=== PATIENT | male | born 1995 | race Caucasian/White ===

== ENCOUNTER 2023-01-31 08:30 | Emergency (ER) | payer BC, OTHER, SELFPAY ==
--- NOTE | ~2023-01-31 | XR_ITS ---
EXAMINATION: XR CHEST CLINICAL INFORMATION: Chest pain COMPARISON: 06/24/2012 (report only) TECHNIQUE: 2 views of the chest were obtained. FINDINGS: Again noted are hypoinflated lungs. Otherwise, no significant abnormality is noted involving the heart, lungs, mediastinum, bony thorax or soft tissues. XR/XR chest 2V IMPRESSION: Hypoinflated lungs. No acute intrathoracic disease.
--- NOTE | 2023-01-31 08:37 | ECG_ITS ---
Test Reason : cp Blood Pressure : / mmHG Vent. Rate : 083 BPM Atrial Rate : 083 BPM P-R Int : 152 ms QRS Dur : 088 ms QT Int : 384 ms P-R-T Axes : 033 028 045 degrees QTc Int : 451 ms Normal sinus rhythm Cannot rule out Anterior infarct , age undetermined Abnormal ECG No previous ECGs available Referred By: Zahira Rosa Electronically Signed By:COLLIN SOLARES
--- NOTE | 2023-01-31 08:37 | ED_ITS ---
HPI - General Adult General Chief complaint: Chest Pain Stated complaint: WOKE UP W/CRUSHING CP PER EMS Time Seen by Provider: 01/31/23 08:36 Source: patient and EMS Mode of arrival: EMS Limitations: no limitations History of Present Illness HPI narrative: This is a 27yo male with a PMH of antiphospholipid syndrome and heartburn on omeprazole who presents with waxing and waning chest pain that started at 4:30am. Pain is described as substernal tight/cramping and occasionally radiates to the right axilla. Patient reports he has felt off since yesterday after he had a CT w contrast of the LEs due to chronic LE pain and suspicion for blood clots. Has not taken any OTC medications for the pain. Denies SOB, fever/chills, N/V. Onset (ago): hour(s) Location: chest Severity: mild Relieving factors: none Exacerbating factors: none Associated symptoms: chest pain Treatments prior to arrival: none Related Data Allergies Allergy/AdvReac Type Severity Reaction Status Date / Time azithromycin [From ZITHROMAX] Allergy Intermediate HIVES Unverified 01/15/20 16:46 montelukast [From SINGULAIR] Allergy Intermediate HIVES Unverified 01/15/20 16:46 amoxicillin [AMOXICILLIN] Allergy Unknown HIVES Unverified 01/15/20 16:46 ENVIRONMENTAL Allergy Unknown DIFFICULTY Uncoded 01/15/20 16:46 BREATHING Penicillin Allergy Unknown Uncoded 12/29/16 00:00 Review of Systems 2 Constitutional: Constitutional: Reports no additional constitutional complaints, Denies chills, Denies fever(s) and Denies night sweats Eyes: Eyes: Reports no additional eye complaints, Denies blurry vision, Denies change in vision, Denies diplopia, Denies eye discharge, Denies loss of vision and Denies eye pain ENT: Denies dizziness Cardiovascular: Cardiovascular: Reports chest pain, Denies lightheadedness, Denies Loss of Consciousness and Denies dyspnea Comments: +waxing and waning substernal cramping c hest pain, radiates to right axilla Respiratory: Respiratory: Reports no additional respiratory complaints and Denies dyspnea Gastrointestinal: Gastrointestinal: Reports no additional gastrointestinal complaints, Denies abdominal pain, Denies melena, Denies hematochezia, Denies change in bowel habits and Denies change in stool character Genitourinary: Genitourinary: Reports no additional male genitourinary complaints, Denies hematuria, Denies oliguria, Denies difficulty urinating, Denies dysuria, Denies urinary frequency, Denies urinary hesitancy, Denies urinary incontinence and Denies urinary urgency Musculoskeletal: Musculoskeletal: Reports no additional musculoskeletal complaints, Denies numbness and Denies tingling Neurologic: Denies dizziness, Denies loss of vision, Denies numbness and Denies tingling Psychiatric: Psychiatric: Reports no additional psychiatric complaints Endocrine: Endocrine: Reports no additional endocrine complaints Hematologic/Lymphatic: Hematologic/Lymphatic: Reports no additional hematologic/lymphatic complaints Allergic/Immunologic: Allergic/Immunologic: Reports no additional allergic/immunologic complaints [facility], [facility] Past Medical History Attestation statement: The following information was validated with the patient. Source: old records reviewed and nursing notes reviewed Social History Social History Smoked in Last 30 Days: No Use of substances other than those prescribed or required for medical reasons: No Advance Directives: No Advance Directives Information Provided: No Physical Exam ED Vital Signs: Vital Signs - 24 hr 01/31/23 08:38 01/31/23 10:25 Temperature 98.2 F 98.4 F Pulse Rate 81 76 Respiratory Rate 20 20 Blood Pressure 133/87 135/87 Pulse Oximetry 96 Oxygen Delivery Method Room Air Room Air Oxygen Flow Rate 98 BMI result Body Mass Index 38.8 Const General: cooperative, no acute distress, alert and awake Nutritional Appearance: well nourished Orientation/consciousness: patient oriented x3 Limitations: no limitations [facility] Head: Yes normal to inspection and Yes atraumatic Ears: hearing grossly normal bilaterally and external ears normal General nose exam: Normal external nose present, no nasal discharge noted and no epistaxis Face and sinus: Yes normal facial exam, No abrasion and No laceration Mouth: Normal oral and palatal mucosa present, no drooling and no muffled voice Eyes General: appearance normal, both eyes and all related structures Periorbital: periorbital findings normal Eyelids: Yes eyelids normal Conjunctivae: conjunctivae normal Pupils: Equal, round and reactive pupils present EOM: EOMs intact bilaterally Neck Neck: Yes normal visual inspection, Yes full ROM and Yes no lymphadenopathy Chest Chest palpation & inspection: normal inspection of the chest Resp Effort & Inspection: normal respiratory effort and able to speak in complete sentences Auscultation: clear to auscultation bilaterally Cardio Rate: regular rate Rhythm: regular rhythm GI Inspection: Yes normal to inspection Palpation (GI): Soft to palpation, not firm and nontender Neuro General: patient oriented x3 and moves all extremities Cranial nerves: Yes Equal, round and reactive pupils present Cognition (Neuro): normal cognition Motor exam (neuro): 5/5 motor strength present throughout Sensory Exam: Normal double simultaneous stimulation for sensation Coordination: [id number] test normal Extrem General: Yes normal to inspection, Yes full ROM and Yes capillary refill normal Psych Appearance: grossly normal Mental Status: mental status grossly normal Affect: normal affect Attitude: cooperative Thought process: Normal thought process present Thought content: Normal thought content present Insight: Good insight present (Psych) Medications Administered Discontinued Medications Generic Name Dose Route Start Last Admin Trade Name Freq PRN Reason Stop Dose Admin Al Hydroxide/Mg Hydroxide 15 ml 01/31/23 08:47 01/31/23 09:14 Magnesium Hydrox/Alum Hydrox 30 Ml Oral.Susp PO 01/31/23 08:48 15 ml ONCE ONE Administration Omeprazole 20 mg 01/31/23 08:47 01/31/23 09:14 Omeprazole 20 Mg Capsule.Dr PO 01/31/23 08:48 20 mg ONCE ONE Administration Medical Decision Making Medical Decision Making [facility] Narrative: Patient is a 27 year old assigned male at with a history of APS presenting to the emergency department today with intermittent, now resolved, chest pain. Patient's physical exam was unremarkable. Patient's blood work was unremarkable. Patient's EKG was unremarkable. Patient's chest x-ray showed no acute process. I explained my physical exam findings as well as all test results to the patient. I answered all questions asked by the patient. I stressed the importance of the patient taking his medication as prescribed. I stressed the importance of the patient following up with his primary care provider. I stressed the importance of the patient returning to the emergency department immediately if his symptoms were to worsen or if he were to develop any dizziness, shortness of breath, difficulty breathing, chest pain, blurry vision, loss of vision, nausea, vomiting, abdominal pain, fever, chills, back pain, or any other complaints. Patient verbalized agreement and understanding with this treatment plan and discharge. Differential Diagnosis Differential Diagnoses: The differential diagnosis associated with the presentation includes Atypical chest pain Chest pain NSTEMI STEMI Admission/Observation Consideration of admission/observation: Escalation of care including admission/observation considered Patient would have been admitted to the hospital had his work up had any findings where hospital admission was appropriate and his clinical presentation warranted hospital admission. Lab Data MDM Lab Attestation statement: I reviewed the patient's lab results. My interpretation of these studies and their corresponding values is that they are grossly normal. 01/31/23 09:22 01/31/23 09:22 Labs: Lab Results 01/31/23 Range/Units 09:22 WBC 9.8 (4.8-10.8) X10*3/uL RBC 5.12 (4.60-5.80) X10*6/uL Hgb 15.5 (14.0-18.0) g/dl Hct 44.6 (42.0-52.0) % MCV 87.1 (80.0-98.0) fL MCH 30.3 (27.0-33.0) pg MCHC 34.8 (31.0-36.0) g/dl RDW 12.6 (11.0-16.0) % Plt Count 310 (160-400) X10*3/uL MPV 10.2 (9.4-12.4) fL Immature Gran % (Auto) 0.2 (0.0-0.4) % Neut % (Auto) 59.1 (45-73) % Lymph % (Auto) 25.1 (20-40) % [place] % (Auto) 9.9 (2-11) % Eos % (Auto) 5.2 H (0-4) % Baso % (Auto) 0.5 (0-2) % Lymph # (Auto) 2.5 (1.2-4.9) X10*3/uL [place] # (Auto) 1.0 (0.1-1.2) X10*3/uL Eos # (Auto) 0.5 H (0.0-0.4) X10*3/uL Baso # (Auto) 0.1 (0.0-0.2) X10*3/uL Abs Immat Gran (auto) 0.02 (0.00-0.03) X10*3/uL Absolute Neuts (auto) 5.8 (2.0-8.3) x10*3/uL Absolute Nucleated RBC 0.000 (0.0-0.012) X10*3/uL Nucleated RBC % (auto) 0.0 (0.0-0.2) /100WBC PT 11.5 (11.1-13.3) SEC INR 0.9 (0.9-1.1) APTT 36.4 (26.0-36.4) SEC Sodium 139 (135-145) mmol/L Potassium 4.3 (3.3-5.1) mmol/L Chloride 107 (96-108) mmol/L Carbon Dioxide 24 (22-29) mmol/L Anion Gap 12 (12-20) BUN 11 (9-16) mg/dL Creatinine 0.67 (0.5-1.4) mg/dL Estim Creat Clear Calc 221.4 Estimated GFR > 60 Random Glucose 107 (60-115) mg/dL Calcium 9.1 (8.4-10.2) mg/dL Magnesium 2.3 (1.6-2.6) mg/dL Total Bilirubin 0.6 (0.0-1.0) mg/dL AST 45 H (5-37) U/L ALT 61 H (0-40) U/L Alkaline Phosphatase 61 (39-117) U/L Troponin I High Sens < 2.7 (<3.5-35.0) ng/L Total Protein 7.6 (6.5-8.0) g/dL Albumin 4.2 (3.5-5.0) g/dL Influenza Type A (PCR) NEGATIVE (Negative) Influenza Type B (PCR) NEGATIVE (Negative) RSV RNA Qual (PCR) NEGATIVE (Negative) SARS-CoV-2 RNA (RT-PCR) NEGATIVE (Negative) Independent Interpretation I performed an independent interpretation of an: EKG and Plain X-Ray Interpretation: My interpretation is in agreement with the radiologist's impression of this imaging study. - EXAMINATION: XR CHEST CLINICAL INFORMATION: Chest pain COMPARISON: 06/24/2012 (report only) TECHNIQUE: 2 views of the chest were obtained. FINDINGS: Again noted are hypoinflated lungs. Otherwise, no significant abnormality is noted involving the heart, lungs, mediastinum, bony thorax or soft tissues. XR/XR chest 2V IMPRESSION: Hypoinflated lungs. No acute intrathoracic disease. Dictated By: Mesfin Whaley MD Signed By: Electronically signed by Mesfin Whaley MD 01/31/23 0913 - Vent. Rate: 083 BPM Atrial Rate: 083 BPM P-R Int: 152 ms QRS Dur: 088 ms QT Int: 384 ms P-R-T Axes: 033 028 045 degrees QTc Int: 451 ms Normal sinus rhythm Cannot rule out Anterior infarct , age undetermined Abnormal ECG No previous ECGs available DD/ 0840 Radiology Impression Discussion of test interpretation with radiology: I have reviewed the radiologist's reading. Discharge Plan Discharge Clinical Impression: Atypical chest pain Patient Disposition: Home, Self-Care Instructions: Chest Pain (ED) Additional Instructions: Follow up with your primary care provider. Return to the emergency department immediately if your symptoms worsen or if you develop any dizziness, shortness of breath, difficulty breathing, chest pain, blurry vision, loss of vision, nausea, vomiting, abdominal pain, fever, chills, back pain, or any other complaints. Referrals: Jazmyn Hull MD [Primary Care Provider] - Stand Alone Forms: Work/School Release Interventions: ED Discharge Assessment Last Done: 01/31/23 10:28 Discharge Date/Time: 01/31/23 10:29 Print Language: Bengali
[2023-01-31 08:38] VITALS: BP 133/87; BP 180/60; PULSE 81; RESP 20; TEMP 36.8; O2SAT 96; BMI 38.8
[2023-01-31] MEDS: Magnesium Hydrox/Alum Hydrox 30 ML ORAL.SUSP 15 ML PO (09:14)
[2023-01-31] MEDS: Omeprazole 20 MG CAPSULE.DR PO (09:14)
[2023-01-31 09:28] LABS: MANUAL DIFF FLAG NO
--- NOTE | 2023-01-31 09:29 | PC.NURSE ---
alert and oriented, respirations even and unlabored. pt refused IV d/t having one yesterday and not desiring one today. able to straight stick pt to obtain lab work with reluctance from pt. sinus rhythm on monitor, swab obtained and sent. call palma within reach
[2023-01-31 09:30] LABS: Basophils Absolute Auto 0.1 X10*3/uL (0.0-0.2); Basophils Percent Auto 0.5 % (0-2); Eosinophils Absolute Auto 0.5 X10*3/uL (0.0-0.4); Eosinophils Percent Auto 5.2 % (0-4); Hematocrit 44.6 % (42.0-52.0); Hemoglobin 15.5 g/dl (14.0-18.0); Imm Gran Abs Auto 0.02 X10*3/uL (0.00-0.03); Imm Gran Pct Auto 0.2 % (0.0-0.4); Lymphocytes Absolute Auto 2.5 X10*3/uL (1.2-4.9); Lymphocytes Percent Auto 25.1 % (20-40); Mean Corpuscular HGB Conc 34.8 g/dl (31.0-36.0); Mean Corpuscular Hemoglobin 30.3 pg (27.0-33.0); Mean Corpuscular Volume 87.1 fL (80.0-98.0); Mean Platelet Volume 10.2 fL (9.4-12.4); Monocytes Percent Auto 9.9 % (2-11); Neutrophils Absolute Auto 5.8 x10*3/uL (2.0-8.3); Neutrophils Percent Auto 59.1 % (45-73); Platelet Count 310 X10*3/uL (160-400); Red Blood Count 5.12 X10*6/uL (4.60-5.80); Red Cell Distribution Width 12.6 % (11.0-16.0); White Blood Count 9.8 X10*3/uL (4.8-10.8)
[2023-01-31 09:35] LABS: INTERNATIONAL NORM RATIO 0.9 (0.9-1.1); Prothrombin Time 11.5 SEC (11.1-13.3)
[2023-01-31 09:37] LABS: Partial Thromboplastin Time 36.4 SEC (26.0-36.4)
[2023-01-31 09:46] LABS: Alanine Aminotransferase 61 U/L (0-40); Albumin Level 4.2 g/dL (3.5-5.0); Alkaline Phosphatase 61 U/L (39-117); Anion Gap 12 (12-20); Aspartate Amino Transferase 45 U/L (5-37); Bilirubin Total 0.6 mg/dL (0.0-1.0); Blood Urea Nitrogen 11 mg/dL (9-16); Calcium 9.1 mg/dL (8.4-10.2); Carbon Dioxide 24 mmol/L (22-29); Chloride 107 mmol/L (96-108); Creatinine Clr Calc Pharmacy 221.4; Estimated Glomerular Filt Rate > 60; Glucose Random 107 mg/dL (60-115); Magnesium 2.3 mg/dL (1.6-2.6); Potassium 4.3 mmol/L (3.3-5.1); Sodium 139 mmol/L (135-145); Total Protein 7.6 g/dL (6.5-8.0)
[2023-01-31 09:55] LABS: Troponin-I High Sensitivity < 2.7 ng/L (<3.5-35.0)
[2023-01-31 10:11] LABS: Influenza A PCR NEGATIVE (Negative); Influenza B PCR NEGATIVE (Negative); Resp Syncy Virus RNA Qual PCR NEGATIVE (Negative); SARS COV2 PCR INHOUSE NEGATIVE (Negative)
[2023-01-31 10:25] VITALS: BP 135/87; PULSE 76; RESP 20; TEMP 36.9
== END 2023-01-31 10:29 | disposition home or self-care (01) ==
PROVIDERS: Physician Assistant Medical; Emergency Provider Emergency Medicine; PCP Pediatrics
DX: R07.89 Other chest pain (principal); R25.2 Cramp and spasm; Z20.822 Contact with and (suspected) exposure to COVID-19; Z20.828 Contact with and (suspected) exposure to other viral communicable diseases; Z79.899 Other long term (current) drug therapy
CPT/HCPCS: 0241U; 71046; 80053; 83735; 84484; 85025; 85610; 85730; 93005; 99283; 99285

== ENCOUNTER 2025-01-28 12:58 | Emergency (ER) | payer BC, SELFPAY ==
--- NOTE | ~2025-01-28 | CT_ITS ---
CLINICAL HISTORY: left upper abdominal pain CT abdomen and pelvis without contrast Comparison: None provided Findings: Lung bases clear. No acute bony abnormalities. Hepatomegaly with fatty infiltration of the liver. No focal abnormality in liver or spleen. Pancreas and adrenal glands unremarkable. Gallbladder partially contracted, grossly unremarkable. Punctate nonobstructing left renal stones. No right renal or bilateral ureteral stone. No hydronephrosis identified. No evidence for aortic aneurysm. No free fluid or adenopathy in the pelvis. No diverticulitis. Appendix unremarkable. Impression: No acute processes This document has been electronically signed by: Lorenzo Alexis MD on 01/28/2025 21:29:57
[2025-01-28 13:29] VITALS: BP 133/84; PULSE 84; RESP 18; TEMP 36.3; O2SAT 97; BMI 43.2
[2025-01-28 15:45] LABS: MANUAL DIFF FLAG NO
[2025-01-28 15:48] LABS: Hematocrit 45.1 % (42.0-52.0); Hemoglobin 15.8 g/dl (14.0-18.0); Imm Gran Abs Auto 0.04 X10*3/uL (0.00-0.03); Imm Gran Pct Auto 0.4 % (0.0-0.4); Lymphocytes Absolute Auto 3.4 X10*3/uL (1.2-4.9); Mean Corpuscular HGB Conc 35.0 g/dl (31.0-36.0); Mean Corpuscular Hemoglobin 29.8 pg (27.0-33.0); Mean Corpuscular Volume 84.9 fL (80.0-98.0); NRBC Abs Auto 0.000 X10*3/uL (0.0-0.012); NRBC Pct Auto 0.0 /100WBC (0.0-0.2); Platelet Count 329 X10*3/uL (160-400); Red Blood Count 5.31 X10*6/uL (4.60-5.80); White Blood Count 11.3 X10*3/uL (4.8-10.8)
[2025-01-28 16:00] LABS: Alanine Aminotransferase 49 U/L (0-40); Albumin Level 4.5 g/dL (3.5-5.0); Alkaline Phosphatase 82 U/L (39-117); Anion Gap 11 (12-20); Aspartate Amino Transferase 51 U/L (5-37); Blood Urea Nitrogen 10 mg/dL (9-16); Calcium 9.2 mg/dL (8.4-10.2); Carbon Dioxide 30 mmol/L (22-29); Chloride 104 mmol/L (96-108); Creatinine Clr Calc Pharmacy 223.6; Estimated Glomerular Filt Rate > 60; Lipase 29 U/L (8-78); Magnesium 2.3 mg/dL (1.6-2.6); Potassium 4.1 mmol/L (3.3-5.1); Sodium 141 mmol/L (135-145); Total Protein 8.0 g/dL (6.5-8.0)
--- NOTE | 2025-01-28 18:06 | ED.ABDPAIN ---
HPI - Abdominal Pain General Chief Complaint: Abdominal Pain Stated Complaint: rib pain Time Seen by Provider: 01/28/25 18:28 Source: patient, RN notes reviewed and old records reviewed Mode of arrival: ambulatory Limitations: no limitations History of Present Illness ED Provider: Luciano LIAO narrative: 29-year-old male past medical history significant for obesity, GERD, asthma, antiphospholipid syndrome presents for evaluation of abdominal pain. Patient reports left upper abdominal pain under his left rib for about 1 week. He went to urgent care yesterday and was told they thought his abdomen to be distended. When they were palpating his abdomen the patient has started to have more generalized abdominal pain in the left upper abdomen, epigastric and right upper abdomen He reports some nausea with no vomiting. He denies any diarrhea pain He reports he has a proximally 1 bowel movement per day in his last bowel was this morning, no blood noted The patient denies any history abdominal surgeries Related Data Allergies Allergy/AdvReac Type Severity Reaction Status Date / Time azithromycin (From ZITHROMAX) Allergy Intermediate HIVES Verified 01/28/25 13:30 montelukast (From SINGULAIR) Allergy Intermediate HIVES Verified 01/28/25 13:30 amoxicillin (AMOXICILLIN) Allergy Unknown HIVES Verified 01/28/25 13:30 ENVIRONMENTAL Allergy Unknown DIFFICULTY Uncoded 01/15/20 16:46 BREATHING Penicillin Allergy Unknown Unknown Uncoded 01/28/25 13:30 Review of Systems Constitutional: Denies body ache(s), Denies chills, Denies fever(s) and Denies headache(s) Eyes: Denies blurry vision Denies vertigo, Denies dizziness and Denies headache(s) Cardiovascular: Denies chest pain and Denies dyspnea on exertion Respiratory: Denies cough and Denies dyspnea on exertion Gastrointestinal: Reports abdominal pain, Denies melena, Denies hematochezia, Denies constipation, Denies diarrhea, Denies loose stools, Reports nausea and Denies vomiting Musculoskeletal: Denies back pain Skin/Breast: Denies rash Denies vertigo, Denies dizziness and Denies headache(s) Psychiatric: Denies anxiety PMFSH Social History Social History Advance Directives: No Advance Directives Information Provided: Yes Do you have a plan to hurt others: No Plan Physical Exam ED Vital Signs: Vital Signs - 24 hr 01/28/25 13:29 01/28/25 18:48 Temperature 97.4 F 98.3 F Pulse Rate 84 64 Respiratory Rate 18 14 Blood Pressure 133/84 133/86 Pulse Oximetry 97 99 Oxygen Delivery Method Room Air Room Air BMI result Body Mass Index 43.2 Const General: healthy appearing, comfortable, no acute distress, alert and awake Nutritional Appearance: well nourished Orientation/consciousness: patient oriented x3 HENMT Head: Yes normocephalic and Yes atraumatic Eyes Eyelids: Yes eyelids normal Conjunctivae: conjunctivae normal Sclerae: sclerae normal Corneas: corneas normal Pupils: Equal, round and reactive pupils present EOM: EOMs intact bilaterally Neck Neck: Yes full ROM Resp Effort & Inspection: normal respiratory effort, able to speak in complete sentences and not labored GI Inspection: No distended Palpation (GI): Soft to palpation, not firm, Tenderness to palpation present (GI) in the LUQ; not in the LLQ, not in the RLQ, not in the RUQ and Dorantes's sign negative, no guarding and not rigid Skin General skin exam: elasticity normal Neuro General: patient oriented x3 Cranial nerves: Yes Equal, round and reactive pupils present and Yes Bilaterally intact EOM present Cognition (Neuro): normal cognition Extrem Other: Moving all extremities well without any obvious deformities Medical Decision Making Medical Decision Making [facility] Narrative: 29-year-old male with past medical history as above presents for evaluation of upper abdominal pain. His symptoms started 1 week ago. They do not seem to be related to eating. He had associated nausea without vomiting. Has a history of GERD. He reports his last endoscopy was a few months ago put in his not in our computer system. The patient's labs are significant for a mild leukocytosis of 11.3, there was no left shift. He has a slight elevation of AST and ALT which she has had in the past. Bilirubin is within normal limits. Lipase is normal. Plan for CT scan abdomen pelvis, he has an allergy to contrast we will do the CT scan without contrast Differential Diagnosis Differential Diagnoses: The differential diagnosis associated with the presentation includes Constipation Peptic ulcer disease GERD Perforated viscus less likely Abdominal pain Diverticulitis Biliary colic Pancreatitis Lab Data [facility] Lab Attestation statement: I reviewed the patient's lab results. As above 01/28/25 15:41 01/28/25 15:41 Labs: Lab Results 01/28/25 01/28/25 Range/Units 15:41 18:57 WBC 11.3 H (4.8-10.8) X10*3/uL RBC 5.31 (4.60-5.80) X10*6/uL Hgb 15.8 (14.0-18.0) g/dl Hct 45.1 (42.0-52.0) % MCV 84.9 (80.0-98.0) fL MCH 29.8 (27.0-33.0) pg MCHC 35.0 (31.0-36.0) g/dl RDW 13.1 (11.0-16.0) % Plt Count 329 (160-400) X10*3/uL MPV 9.8 (9.4-12.4) fL Immature Gran % (Auto) 0.4 (0.0-0.4) % Neut % (Auto) 58.3 (45-73) % Lymph % (Auto) 29.7 (20-40) % [place] % (Auto) 7.8 (2-11) % Eos % (Auto) 3.3 (0-4) % Baso % (Auto) 0.5 (0-2) % Lymph # (Auto) 3.4 (1.2-4.9) X10*3/uL [place] # (Auto) 0.9 (0.1-1.2) X10*3/uL Eos # (Auto) 0.4 (0.0-0.4) X10*3/uL Baso # (Auto) 0.1 (0.0-0.2) X10*3/uL Abs Immat Gran (auto) 0.04 H (0.00-0.03) X10*3/uL Absolute Neuts (auto) 6.6 (2.0-8.3) x10*3/uL Absolute Nucleated RBC 0.000 (0.0-0.012) X10*3/uL Nucleated RBC % (auto) 0.0 (0.0-0.2) /100WBC Sodium 141 (135-145) mmol/L Potassium 4.1 (3.3-5.1) mmol/L Chloride 104 (96-108) mmol/L Carbon Dioxide 30 H (22-29) mmol/L Anion Gap 11 L (12-20) BUN 10 (9-16) mg/dL Creatinine 0.67 (0.5-1.4) mg/dL Estim Creat Clear Calc 223.6 Estimated GFR > 60 Random Glucose 121 H (60-115) mg/dL Calcium 9.2 (8.4-10.2) mg/dL Magnesium 2.3 (1.6-2.6) mg/dL Total Bilirubin 0.6 (0.0-1.0) mg/dL Direct Bilirubin 0.3 (0.0-0.5) mg/dL AST 51 H (5-37) U/L ALT 49 H (0-40) U/L Alkaline Phosphatase 82 (39-117) U/L Total Protein 8.0 (6.5-8.0) g/dL Albumin 4.5 (3.5-5.0) g/dL Lipase 29 (8-78) U/L Urine Color Yellow Urine Appearance Clear Urine pH 6.0 (5.0-9.0) Ur Specific [place] 1.015 (1.005-1.025) Urine Protein Negative (Neg-Trace) mg/dL Urine Glucose (UA) Negative (Negative) mg/dL Urine Ketones Negative (Negative) mg/dL Urine Blood Negative (Negative) Urine Nitrite Negative (Negative) Ur Leukocyte Esterase Negative (Negative) Discharge Plan Discharge Clinical Impression: Abdominal pain Patient Disposition: Home, Self-Care Instructions: Abdominal Pain (ED) Additional Instructions: Your workup in the ER today was reassuring. This includes your blood work, exam and CT scan. There was no evidence of infection, obstruction. Your symptoms may be related to heartburn. I recommend that you follow up with GI at the number provided. You may increase your omeprazole to 20 mg twice a day for the next 2 weeks Return for new or worsening symptoms Referrals: [facility] [place] Gastroenterology Services [Provider Group, Gastroenterology] Referral Note: upper abdominal pain Stand Alone Forms: Work/School Release Print Language: Hungarian
--- OUTSIDE RECORDS SUMMARY | 2025-01-28 18:35 | XMS_ITS | Encounter Summary ---
Author Organization [facility] Address [address] [place] [id number] Phone Care Team Providers Care Meat Dresser Name Role Phone Georgia Saldivar MD Primary Care Provider [phone] Encounter Details Date Type Department Care Team (Late st Contact Info) Description 02/09/2012 Documentation [facility] [place] Family Medicine [address] [place], [place] [id number] Family Medicine, Physician [address] [place] [address] Social History Tobacco Use Types Packs/Day Years Used Date Smoking Tobacco: Never Assessed Sex and Gender Information Value Date Recorded Sex Assigned at Not on file Legal Sex Male 4:51 PM EDT Gender Identity Not on file Sexual Orientation Not on file documented as of this encounter Plan of Treatment Not on file documented as of this encounter Visit Diagnoses Not on filedocumented in this encounter Care Teams Meat Dresser Relationship Specialty Start Date End Date Georgia Saldivar MD [address] [place], [place] [address]SU[place]A [address] PCP - General 12/08/16 documented as of this encounter
--- OUTSIDE RECORDS SUMMARY | 2025-01-28 18:35 | XMS_ITS | Encounter Summary ---
Author Organization [facility] Address [address] [place] [address] Phone Care Team Providers Care Paving Supervisor Name Role Phone Georgia Saldivar MD Primary Care Provider [phone] Encounter Details Date Type Department Care Team (Late st Contact Info) Description 02/21/2012 Documentation [facility] [place] Family Medicine [address] [place], [place] [id number] Family Medicine, Physician [address] [place] [address] Social History Tobacco Use Types Packs/Day Years [...] on filedocumented in this encounter Care Teams Paving Supervisor Relationship Specialty Start Date End Date Georgia Saldivar MD [address] [place], [place] [address]SU[place] [address] PCP - General 12/08/16 documented as of this encounter
--- OUTSIDE RECORDS SUMMARY | 2025-01-28 18:35 | XMS_ITS | Encounter Summary ---
Author Organization [facility] Address [address] [place] [address] Phone Care Team Providers Care Asbestos Brake Lining Finisher Helper Name Role Phone Georgia Saldivar MD Primary Care Provider [phone] Encounter Details Date Type Department Care Team (Late st Contact Info) Description 02/29/2012 Documentation [facility] [place] Family Medicine [address] [place], [place] [phone] Family Medicine, Physician [address] [place] [address] Social History Tobacco Use Types Packs/Day Years [...] on filedocumented in this encounter Care Teams Asbestos Brake Lining Finisher Helper Relationship Specialty Start Date End Date Georgia Saldivar MD [address] [place], [place] [address] [address] PCP - General 12/08/16 documented as of this encounter
--- OUTSIDE RECORDS SUMMARY | 2025-01-28 18:35 | XMS_ITS | Encounter Summary ---
Author Organization [facility] Address [address] [place] [phone] Phone Care Team Providers Care Folding Rules Printing Machine Operator Name Role Phone Georgia Saldivar MD Primary Care Provider [phone] Encounter Details Date Type Department Care Team (Late st Contact Info) Description 02/09/2012 Documentation [facility] [place] [address] [place], [place] [address] Family Medicine, Physician [address] [place] [address] Social History Tobacco Use Types Packs/Day Years [...] on filedocumented in this encounter Care Teams Folding Rules Printing Machine Operator Relationship Specialty Start Date End Date Georgia Saldivar MD [address] [place], [place] [address] [address] PCP - General 12/08/16 documented as of this encounter
--- OUTSIDE RECORDS SUMMARY | 2025-01-28 18:36 | XMS_ITS | Encounter Summary ---
Author Organization [facility] Address [address] [place] [address] Phone Care Team Providers Care Bearing Maker Name Role Phone Georgia Saldivar MD Primary Care Provider [phone] Encounter Details Date Type Department Care Team (Late st Contact Info) Description 06/27/2012 Documentation [facility] [place] [address] [place], [place] [phone] Family Medicine, Physician [address] [place] [address] Social History Tobacco Use Types Packs/Day Years [...] on filedocumented in this encounter Care Teams Bearing Maker Relationship Specialty Start Date End Date Georgia Saldivar MD [address] [place], [place] [address] [address] PCP - General 12/08/16 documented as of this encounter
--- OUTSIDE RECORDS SUMMARY | 2025-01-28 18:36 | XMS_ITS | Encounter Summary ---
Author Organization [facility] Address [address] [facility] [address] [place] [address] Phone Care Team Providers Care Hris Administrator Name Role Phone Jazmyn Hull MD Primary Care Provid er Encounter Details Date Type Department Care Team (Latest Contact Info) Description 09/25/2024 Transcribe Orders Virtual Department 30 [place] [address] Keshia Hudson NP 10 [place] [address] Vomiting, unspecified vomiting type, unspecified whether nausea present (Primary Dx); Abnormal LFTs Social History Tobacco Use Types Packs/Day Years Used Date Smoking Tobacco: Never Assessed Education Answer Date Recorded Are you interested in more education? Not on sita e 10/16/2023 Are you concerned about learning? Not on file 10/16/2023 No 10/16/2023 No 10/16/2023 Digital Access Answer Date Recorded No 10/16/2023 No 10/16/2023 Reliable internet access at home? Not on file 10/16/2023 Device with a working camera? Not on file Sex and Gender Information Value Date Recorded Sex Assigned at Not on file Legal Sex Male 11:40 AM EDT Gender Identity Not on file Sexual Orientation Not on file documented as of this encounter Plan of Treatment Upcoming Encounters Date Type Department Care Team (Late st Contact Info) Description 02/23/2025 2:15 PM EDT Office Visit [facility] 10 [place] [address] Unknown, Unknown, Keshia Sánchez NP 10 [place], [place] [phone] [email or web address] documented as of this encounter Results * FL BARIUM SWALLOW ESOPHAGRAM DOUBLE CONTRAST (10/02/2024 10:55 AM EDT) Anatomical Region Laterality Modality Chest Radio Fluoroscop y 10/02/2024 12:0 8 PM EDT Impressions 10/02/2024 12:36 PM EDT No significant abnormality demonstrated fluoroscopically. FLUOROSCOPY TIME: 56 seconds NUMBER OF IMAGES: 173 The examination was performed by Andrea QUIROZ. Dr. Rajesh Leong was immediately available for portions of the procedure as needed. ATTESTATION: I, Rajesh Leong as teaching physician, have reviewed the images for this case and if necessary edited the report originally created by Andrea Vaughn. Narrative 10/02/2024 12:36 PM EDT FL BARIUM SWALLOW ESOPHAGRAM DOUBLE CONTRAST HISTORY: Vomiting. COMPARISON: US abdomen 01/28/2024. TECHNIQUE: Double contrast barium swallow examination was performed with Sodium Carbonate and Barium. FINDINGS: ESOPHAGUS: Motility: Within normal limits. Mucosa: Unremarkable. Distensibility: Normal. GASTROESOPHAGEAL JUNCTION: No evidence of a Schatzki's ring. GASTROESOPHAGEAL REFLUX: None observed. TABLET: A 13 mm barium tablet passed into the stomach without difficulty. Visualized portion of the stomach and proximal small bowel are unremarkable. Procedure Note Rajesh Leong MD - 10/02/2024 FL BARIUM SWALLOW ESOPHAGRAM DOUBLE CONTRAST HISTORY: Vomiting. COMPARISON: US abdomen 01/28/2024. TECHNIQUE: Double contrast barium swallow examination was performed withSodium Carbonate and Barium. FINDINGS: ESOPHAGUS: Motility: Within normal limits. Mucosa: Unremarkable. Distensibility: Normal. GASTROESOPHAGEAL JUNCTION: No evidence of a Schatzki's ring. GASTROESOPHAGEAL REFLUX: None observed. TABLET: A 13 mm barium tablet passed into the stomach withoutdifficulty. Visualized portion of the stomach and proximal small bowel areunremarkable. IMPRESSION: No significant abnormality demonstrated fluoroscopically. FLUOROSCOPY TIME: 56 seconds NUMBER OF IMAGES: 173 The examination was performed by Andrea QUIROZ. Dr. Rajesh Leong wasimmediately available for portions of the procedure as needed. ATTESTATION: I, Rajesh Leong as teaching physician, have reviewed theimages for this case and if necessary edited the report originally createdby Andrea Vaughn. Keshia Hudson FIRST CALENDER WORKER IMG FL MISC Final Res ult documented in this encounter Visit Diagnoses Diagnosis Vomiting, unspecified vomiting type, unspecified whether nausea present- Primary Abnormal LFTs Vomiting, unspecified vomiting type, unspecified whether nausea present Abnormal LFTs documented in this encounter Care Teams Hris Administrator Relationship Specialty Start Date End Date Jazmyn Hull [facility] [place] [address] PCP - General Internal Medicine 01/26/24 documented as of this encounter Additional Source Comments The information contained in this document represents components of the legal health record. It is not the complete legal health record.[facility]
--- OUTSIDE RECORDS SUMMARY | 2025-01-28 18:36 | XMS_ITS | Encounter Summary ---
Author Organization [facility] Address [address] [place] [address] Phone Care Team Providers Care Director Of Critical Care Name Role Phone Georgia Saldivar MD Primary Care Provider [phone] Encounter Details Date Type Department Care Team (Late st Contact Info) Description 08/17/[address] [facility] [place] Family Medicine [address] [place], [place] [phone] Family Medicine, Physician [address] [place] [address] Social History Tobacco Use Types Packs/Day Years [...] on filedocumented in this encounter Care Teams Director Of Critical Care Relationship Specialty Start Date End Date Georgia Saldivar MD [address] [place], [place] [address] [address] PCP - General 12/08/16 documented as of this encounter
--- OUTSIDE RECORDS SUMMARY | 2025-01-28 18:36 | XMS_ITS | Encounter Summary ---
Author Organization [facility] Address [address] [address] Phone Care Team Providers Care Eyelet Riveter Name Role Phone Pcp, Unknown Primary Care Provider Jazmyn Seymour MD Primary Care Provid er Encounter Details Date Type Department Care Team (Latest Contact Info) Description 01/22/2024 Transcribe Orders Virtual Department 30 [place] [address] Keshia Hudson NP 10 [place], [place] [phone] Generalized abdominal pain (Primary Dx); Diarrhea, unspecified type; Nausea and vomiting, unspecified vomiting type Social History Tobacco Use Types Packs/Day Years [...] Description 02/23/2025 2:15 PM EDT Office Visit [facility] 10 [place] [address] Unknown, Unknown, Keshia Sánchez NP 10 [place], [place] [phone] (work) [email or web address] documented as of this encounter Results * US ABDOMEN LIMITED RIGHT UPPER QUADRANT (01/28/2024 10:13 AM EDT) Anatomical Region Laterality Modality Abdomen Ultrasound 01/28/2024 12:0 3 PM EDT Impressions 01/28/2024 12:05 PM EDT 1. Limited examination due to body habitus and bowel gas artifact. 2. No sonographic evidence for acute cholecystitis. 3. Diffuse increased echogenicity liver suggesting fatty infiltration or other diffuse hepatocellular process. Narrative 01/28/2024 12:05 PM EDT US ABDOMEN LIMITED RIGHT UPPER QUADRANT Referring clinician's provided indication for this examination in [facility]: Outside Radiology Order; abdomen pain TECHNIQUE: US Abdominal limited right upper quadrant. COMPARISON: None FINDINGS: Limited examination due to bowel gas artifact and body habitus. Liver: Diffusely increased echogenicity consistent with fatty liver. Portions of the liver are not well visualized. No focal hepatic lesions identified in the visualized portions of the liver. Main Portal Vein: Patent with normal direction of flow. Gallbladder: Normal. No gallstones or gallbladder wall thickening. Dorantes's Sign: Negative. Biliary: Normal. No intrahepatic or extrahepatic biliary ductal dilatation. The common bile duct measures 4 mm. Procedure Note Pj Morgan MD - 01/28/2024 US ABDOMEN LIMITED RIGHT UPPER QUADRANT Referring clinician's provided indication for this examination in [facility]:Outside Radiology Order; abdomen pain TECHNIQUE: US Abdominal limited right upper quadrant. COMPARISON: None FINDINGS: Limited examination due to bowel gas artifact and bodyhabitus. Liver: Diffusely increased echogenicity consistent with fatty liver.Portions of the liver are not well visualized. No focal hepatic lesionsidentified in the visualized portions of the liver. Main Portal Vein: Patent with normal direction of flow. Gallbladder: Normal. No gallstones or gallbladder wall thickening. Dorantes's Sign: Negative. Biliary: Normal. No intrahepatic or extrahepatic biliary ductaldilatation. The common bile duct measures 4 mm. IMPRESSION: 1. Limited examination due to body habitus and bowel gas artifact. 2. No sonographic evidence for acute cholecystitis. 3. Diffuse increased echogenicity liver suggesting fatty infiltration orother diffuse hepatocellular process. Keshia Aleah Hudson SPECIAL AGENT IN CHARGE IMG US ABDOMEN Final Res ult documented in this encounter Visit Diagnoses Diagnosis Generalized abdominal pain- Primary Abdominal pain, generalized Diarrhea, unspecified type Nausea and vomiting, unspecified vomiting type Generalized abdominal pain Abdominal pain, generalized Diarrhea, unspecified type Nausea and vomiting, unspecified vomiting type documented in this encounter Care Teams Eyelet Riveter Relationship Specialty Start Date End Date Pcp, Unknown PCP - General 10/16/23 01/25/24 Jazmyn Hull MD [address] [address] PCP - General Internal Medicine 01/26/24 documented as of this encounter Additional Source Comments The information contained in this document represents components of the legal health record. It is not the complete legal health record.[facility]
--- OUTSIDE RECORDS SUMMARY | 2025-01-28 18:36 | XMS_ITS | Clinical Summary ---
Author Organization [facility] Address [address] [place] [address] Care Team Providers Care Neuroscience Specialist Name Role Phone Joseph Weaver DO Primary Care Provider [phone] Surgical History Surgery Date Site/Laterality Comments OTHER SURGICAL HISTORY 02/2012 PROCEDURE: CO BRONCHOSCOPY BRONCHIAL/ENDOBRNCL BX 1+ SITES Medical History Medical History Date Comments Asthma DX:Asthma Problems with learning DX:Proble ms with learning Prematurity DX:Prematurity GERD (gastroesophageal reflux disease) DX:GERD (gastroesophageal reflux disease) Family History Medical History Relation Name Comments ADD / ADHD Brother Other: allergic rhinitis Brother Asthma Father Diabetes Father Eczema Father Hypertension Father Other: allergic rhinitis Father Other: lazy eye Father Thyroid disease Father Other: allergic rhinitis Mother Other: allergic rhinitis Sister Other: tree nut allergy Sister Relation Name Status Comments Brother Father Mother Sister Social History Tobacco Use Types Packs/Day Years Used Date Smoking Tobacco: Never Smokeless Tobacco: Never Alcohol Use Standard Drinks/Week Comments No 0 (1 standard drink = 0.6 oz pur e alcohol) Sex and Gender Information Value Date Recorded Sex Assigned at Not on file Legal Sex Male 11:46 AM EST Gender Identity Not on file Sexual Orientation Not on file Obstetrics History Plan of Treatment Health Maintenance Due Date Last Done Comments Hepatitis A Vaccines (2 of 2 - Risk 2-dose series) 05/18/2011 11/15/2010 Pneumococcal Vaccine: Pediatrics (0 to 5 Years) and At-Risk Patients (6 to 49 Years) (2 of 2 - PCV) 09/19/2017 09/19/2016 HIV Screening 03/28/2022 Hepatitis C Screening 03/28/2022 Social Influencers of Health Screening 03/28/2022 Depression Screening 04/30/2024 HPV Vaccines (1 - 3-dose SCDM series) 2024 COVID-19 Vaccine (3 - 2024- season) 2024 08/11/2020, 07/21/2020 Influenza Vaccine (#1) 2024 , 03/09/2021, 01/27/2009, Additional history exists DTaP,Tdap,and Td Vaccines (8 - Td or Tdap) 04/17/2032 04/17/2022, 10/19/2009, 08/27/2002, Additional history exists RSV Immunization Adult Patients (1 - 1-dose 75+ series) 2072 Hepatitis B Vaccines Completed 09/03/1998, 1997, 1997 HIB Vaccines Completed 03/18/1999, 05/01, 03/26/1998, Additional history exists MMR Vaccines Completed 01/09/2002, 03/18/1999 IPV Vaccines Completed 08/27/2002, 02/28, 11/19/1998, Additional history exists Varicella Vaccines Completed 10/08/2008, 11/19/1998 Meningococcal ACWY Vaccine Completed 06/14/2015, Meningococcal B Vaccine Aged Out No l onger eligible based on patient's age to complete this topic RSV Immunization Patients Under 20 months Aged Out No longer eligible based on patient's age to complete this topic Care Teams Neuroscience Specialist Relationship Specialty Start Date End Date Joseph Weaver DO PCP - General Internal Medicine 09/02/21
--- OUTSIDE RECORDS SUMMARY | 2025-01-28 18:36 | XMS_ITS | Clinical Summary ---
Author Organization [facility] Address [address] [place] [address] Phone Care Team Providers Care Mental Telepathist Name Role Phone Georgia Saldivar MD Primary Care Provider [phone] Immunizations Immunization Administration Dates Next Due DTaP 5 08/27/2002, 0,05/28/1998, 998,01/22/1998 Hep A, ped/adol 11/15/2010 Hep B, ped/adol 09/03/1998,1997,1997 Hib (PRP-T) 03/18/1999, 9,03/26/1998, 998 IPV 08/27/2002 Influenza, injectable, trivalent 009,01/22/2007,03/27/2006, 005 MMR 01/09/2002,03/18/1999 Meningococcal Conj (Menactra) MCV4P 10/19/2009 OPV 11/19/1998,03/26/1998,01/22/1998 Tdap 10/19/2009 Varicella 10/08/2008,11/19/1998 Family History Relation Name Status Comments Father Father: diabete s/HTN Maternal Grandfather Materna l grandfather: Cancer, lung, Maternal Grandmother Materna l grandmother: , Cancer, colon Mother Alive Mother: Alive a nd well Other Family history of Asthma Paternal Grandfather Paterna l grandfather: throat cancer, Social History Tobacco Use Types Packs/Day Years Used Date Smoking Tobacco: Never Comments:Never smoker Sex and Gender Information Value Date Recorded Sex Assigned at Not on file Legal Sex Male 4:51 PM EDT Gender Identity Not on file Sexual Orientation Not on file Last Filed Vital Signs Vital Sign Reading Time Taken Comments Blood Pressure 112/70 03/04/2013 12:00 AM EST Pulse 80 03/04/2013 12:00 AM EST Temperature 36.7 C (98 F) 03/04/2013 12:00 AM EST Respiratory Rate - - Oxygen Saturation 98% 02/06/2012 12:00 AM EDT Inhaled Oxygen Concentration - - Weight 76.7 kg (169 lb) 03/04/2013 12:00 AM EST Height 165.1 cm (5' 5 ) 03/04/2013 12:00 AM EST Body Mass Index 28.12 03/04/2013 12:00 AM EST Plan of Treatment Health Maintenance Due Date Last Done Comments Hepatitis A Vaccines (2 of 2 - 2-dose series) 05/18/2011 11/15/2010 DTaP,Tdap,and Td Vaccines (7 - Td or Tdap) 10/20/2019 10/19/2009, 08/27/2002, 05/31/1999, Additional history exists HPV Vaccines (1 - 3-dose SCDM series) 2024 Influenza Vaccines (#1) 2024 01/28/20 09, 01/22/2007, 03/27/2006, Additional history exists COVID-19 Vaccine ( season) 2024 Hepatitis B Vaccines Completed 09/03/1998, 1997, 1997 HIB Vaccines Completed 03/18/1999, 05/01, 03/26/1998, Additional history exists MMR Vaccines Completed 01/09/2002, 03/18/1999 IPV Vaccines Completed 08/27/2002, 10/29, 03/26/1998, Additional history exists Varicella Vaccines Completed 10/08/2008, 11/19/1998 Meningococcal Vaccine Aged Out 10/19/2009 No cody onofre eligible based on patient's age to complete this topic Men B Vaccine Aged Out No longer elig ible based on patient's age to complete this topic Pneumococcal Vaccine Aged Out No long er eligible based on patient's age to complete this topic Care Teams Mental Telepathist Relationship Specialty Start Date End Date Georgia Saldivar MD [address] [facility] [place] [address] PCP - General 12/08/16
--- OUTSIDE RECORDS SUMMARY | 2025-01-28 18:36 | XMS_ITS | Clinical Summary ---
Author Organization [facility] Address [address] [facility] [address] [place] [address] Phone Care Team Providers Care Terrazzo Grinder Name Role Phone Jazmyn Hull MD Primary Care Provid er Social History Tobacco Use Types Packs/Day Years [...] on file Sexual Orientation Not on file Plan of Treatment Upcoming Encounters Date Type Department Care Team (Late st Contact Info) Description 02/23/2025 2:15 PM EDT Office Visit [facility] [address] [place] [address] Unknown, Unknown, Keshia Sánchez, SARI [address] [place] [address] [email or web address] Medical Devices Not on file Insurance [facility] [place] [address] [place] [address] [place] [address] [facility] Care Teams Terrazzo Grinder Relationship Specialty Start Date End Date [facility] [address] [address] PCP - General Internal Medicine 01/26/24 Additional Source Comments The information contained in this document represents components of the legal health record. It is not the complete legal health record.[facility]
--- OUTSIDE RECORDS SUMMARY | 2025-01-28 18:36 | XMS_ITS ---
Author Name [facility] Organization Unknown Care Team Organization Name Specialty Phone Email Start Date End Da te [facility] Mariusz Marti Primary Care 05/08/2022 [facility] Carlota Mcqueen MD Primary Care 03/07/2022 12/17/2023
--- OUTSIDE RECORDS SUMMARY | 2025-01-28 18:36 | XMS_ITS | Encounter Summary ---
Author Organization [facility] Address [address] [place] [address] Phone Care Team Providers Care Final Block Press Operator Name Role Phone Georgia Saldivar MD Primary Care Provider [phone] Encounter Details Date Type Department Care Team (Late st Contact Info) Description 01/29/2012 Documentation [facility] [place] Family Medicine [address] [place], [place] [phone] Family Medicine, Physician [address] [place] [address] Social History Tobacco Use Types Packs/Day Years [...] on filedocumented in this encounter Care Teams Final Block Press Operator Relationship Specialty Start Date End Date Georgia Saldivar MD [address] [place], [place] [address] [address] PCP - General 12/08/16 documented as of this encounter
--- OUTSIDE RECORDS SUMMARY | 2025-01-28 18:36 | XMS_ITS | Encounter Summary ---
Author Organization [facility] Address [address] [place] [address] Phone Care Team Providers Care Javascript Ui Developer Name Role Phone Georgia Saldivar MD Primary Care Provider [phone] Encounter Details Date Type Department Care Team (Late st Contact Info) Description 07/18/2011 Documentation [facility] [place] Family Medicine [address] [place], [place] [phone] Family Medicine, Physician [address] [place] [address] Social History Tobacco Use Types Packs/Day Years [...] on filedocumented in this encounter Care Teams Javascript Ui Developer Relationship Specialty Start Date End Date Georgia Saldivar MD [address] [place], [place] [address] [address] PCP - General 12/08/16 documented as of this encounter
--- OUTSIDE RECORDS SUMMARY | 2025-01-28 18:36 | XMS_ITS | Encounter Summary ---
Author Organization [facility] Address [address] [place] [address] Phone Care Team Providers Care Marketing Services Specialist Name Role Phone Georgia Saldivar MD Primary Care Provider [phone] Encounter Details Date Type Department Care Team (Late st Contact Info) Description 12/31/2009 Documentation [facility] [place] Family Medicine [address] [place], [place] [phone] Family Medicine, Physician [address] [place] [address] Social History Tobacco Use Types Packs/Day Years [...] on filedocumented in this encounter Care Teams Marketing Services Specialist Relationship Specialty Start Date End Date Georgia Saldivar MD [address] [place], [place] [address] [address] PCP - General 12/08/16 documented as of this encounter
--- OUTSIDE RECORDS SUMMARY | 2025-01-28 18:36 | XMS_ITS | Encounter Summary ---
Author Organization [facility] Address [address] [place] [address] Phone Care Team Providers Care Spd Tech Name Role Phone Georgia Saldivar MD Primary Care Provider [phone] Encounter Details Date Type Department Care Team (Late st Contact Info) Description 03/03/2012 Documentation [facility] [place] Family Medicine [address] [place], [place] [phone] Family Medicine, Physician [address] [place] [address] Social History Tobacco Use Types Packs/Day Years [...] on filedocumented in this encounter Care Teams Spd Tech Relationship Specialty Start Date End Date Georgia Saldivar MD [address] [place], [place] [address] [address] PCP - General 12/08/16 documented as of this encounter
--- OUTSIDE RECORDS SUMMARY | 2025-01-28 18:36 | XMS_ITS | Encounter Summary ---
Author Organization [facility] Address [address] [place] [address] Phone Care Team Providers Care Client Care Consultant Name Role Phone Georgia Saldivar MD Primary Care Provider [phone] Encounter Details Date Type Department Care Team (Late st Contact Info) Description 03/03/2012 Documentation [facility] [place] Family Medicine [address] [place], [place] [phone] Family Medicine, Physician [address] [place] [address] Social History Tobacco Use Types Packs/Day Years [...] on filedocumented in this encounter Care Teams Client Care Consultant Relationship Specialty Start Date End Date Georgia Saldivar MD [address] [place], [place] [address] [address] PCP - General 12/08/16 documented as of this encounter
--- OUTSIDE RECORDS SUMMARY | 2025-01-28 18:36 | XMS_ITS | Encounter Summary ---
Author Organization [facility] Address [address] [place] [address] Phone Care Team Providers Care Street Engineer Name Role Phone Georgia Saldivar MD Primary Care Provider [phone] Encounter Details Date Type Department Care Team (Late st Contact Info) Description 01/19/[address] [facility] [place] Family Medicine [address] [place], [place] [phone] Family Medicine, Physician [address] [place] [address] Social History Tobacco Use Types Packs/Day Years [...] on filedocumented in this encounter Care Teams Street Engineer Relationship Specialty Start Date End Date Georgia Saldivar MD [address] [place], [place] [address] [address] PCP - General 12/08/16 documented as of this encounter
[2025-01-28 18:48] VITALS: BP 133/86; PULSE 64; RESP 14; TEMP 36.8; O2SAT 99
[2025-01-28 19:09] LABS: Appearance Urine Clear; Glucose Urine UA Negative (Negative); PH 6.0 (5.0-9.0); Specific Gravity - Urine 1.015 (1.005-1.025)
[2025-01-28 21:54] VITALS: BP 123/83; PULSE 71; RESP 16; TEMP 36.6; O2SAT 98
== END 2025-01-28 21:54 | disposition home or self-care (01) ==
PROVIDERS: Physician Assistant Medical; Emergency Provider Student in an Organized Health Care Education/Training Program; PCP Pediatrics
DX: R10.12 Left upper quadrant pain (principal); D68.61 Antiphospholipid syndrome; K21.9 Gastro-esophageal reflux disease without esophagitis; J45.909 Unspecified asthma, uncomplicated
CPT/HCPCS: 36415; 74176; 80048; 80076; 81003; 83690; 83735; 85025; 99283; 99284

== ENCOUNTER → 2025-01-28 19:04 | Outpatient (BNV) | payer BC, SELFPAY | PROVIDERS: Emergency Provider Student in an Organized Health Care Education/Training Program; PCP Pediatrics; Visit Provider Radiology Diagnostic Radiology | DX: R10.12 Left upper quadrant pain (principal) | CPT/HCPCS: 74176 ==